=== PATIENT | male | born 1950 | race Two or more races ===

== ENCOUNTER 2018-06-25 07:43 | Emergency (ER) | payer MEDICARE ==
[~2018-06-25 07:43] MED LIST: ALL300 PO; ALLO-2 PO; ATOR20TA65 PO; DAPA10TA PO; EZET10TA41 PO; LISI20TA29 PO; METF-411 PO; OXYC-865 PO; PRED20TA6 PO
[2018-06-25 07:47] VITALS: BP 174/111
[2018-06-25] MEDS ORDERED: DAPA5TAB PO (07:50)
[2018-06-25] MEDS ORDERED: EZET10TA41 PO (07:50)
[2018-06-25] MEDS ORDERED: KETOROLAC 60 MG/2 ML VIAL IM ONE (07:55)
[2018-06-25] MEDS ORDERED: GABA-549 PO (07:57)
[2018-06-25] MEDS ORDERED: CYCL10TA29 PO (07:57)
--- NOTE | 2018-06-25 07:58 | ER Report ---
History and Physical Time Seen By MD: 07:54 Hx. of Stated Complaint: PAIN IN LOWER BACK RADIATING DOWN RIGHT LEG SINCE SATURDAY. HPI/ROS CHIEF COMPLAINT: Low back pain sciatica HISTORY OF PRESENT ILLNESS: Patient is a 59 [place] comes emergency Department complaint of low back pain and right-sided sciatic pain he has had this in the past patient has a known history of severe significant degenerative disc disease L3-L4 and L4 and L5 this been confirmed on x-ray he has been followed by primary care comes in today because the last couple days he's been noticing some worsening some stiffness in his leg tried career representative which she says made it worse went to a physical therapist who she says is making better as physical therapy scheduled to the next 3 days. Patient denies any urinary bladder bowel incontinence and numbness of subtle paresthesias no additional neuropathic type processes able to urinate without any issue. On arrival to the emergency department today other than his low back he has no other complaints at this time pain is sharp and stabbing localized to the lumbar area with some radiation into the gluteal area and down the right leg stopping at the knee which is consistent with his prior sciatic REVIEW OF SYSTEMS: Respiratory: No cough, no dyspnea. Cardiovascular: No chest pain, no palpitations. Gastrointestinal: No vomiting, no abdominal pain. Musculoskeletal: Low back pain Remainder of the 14 system rev: Yes Allergies: Coded Allergies: No Known Drug Allergies (Unverified , 06/25/18) Home Meds Reported Medications Dapagliflozin Propanediol (Farxiga) 5 Mg Tablet, 1 TAB PO DAILY 06/25/18 Ezetimibe (ZETIA) 10 Mg Tablet, 10 MG PO QDAY, TAB 06/25/18 Lisinopril (LISINOPRIL) 20 Mg Tablet, 20 MG PO QDAY, TAB 07/06/17 Metformin Hcl (METFORMIN HCL) 500 Mg Tablet, 1 TAB PO DAILY, #180 06/16/16 Discontinued Reported Medications Atorvastatin Calcium (ATORVASTATIN CALCIUM) 20 Mg Tablet, 1 TAB PO DAILY, #90 06/16/16 Discontinued Scripts Prednisone (PREDNISONE) 20 Mg Tablet, 20 MG PO QDAY for 5 Days, #5 TAB 0 Refills Prov:FRANCIS FLOYD MD 07/06/17 Oxycodone Hcl/Acetaminophen (PERCOCET 5-325 MG TABLET) 1 Each Tablet, 1-2 EACH PO Q6H for PAIN, #20 TAB 0 Refills Prov:FRANCIS FLOYD MD 07/06/17 Reviewed Nurses Notes: Yes Old Medical Records Reviewed: Yes Hx Smoking: No Smoking Status: Never Smoker Exposure to Second Hand Smoke?: No Hx Substance Use Disorder: No Hx Alcohol Use: No Constitutional Vital Sign - Last 24 Hours 06/25/18 07:47 Temp 97.5 Pulse 72 Resp 16 B/P (MAP) 174/111 Pulse Ox 91 O2 Delivery Room Air Physical Exam General Appearance: The patient is alert, has no immediate need for airway protection and no current signs of toxicity. [ ] Eyes: Pupils equal and round no injection. Respiratory: Chest is non tender, lungs are clear to auscultation. Cardiac: regular rate and rhythm [ ] Gastrointestinal: Abdomen is soft and non tender, no masses, bowel sounds normal. Musculoskeletal: Low back examination negative Romberg patient able to ambulate with a slight limp able to lift both knees with contralateral discomfort consistent with low back sciatica type pain no numbness or saddle paresthesias noted otherwise negative back examination Neck is supple and non tender. Extremities have full range of motion and are non tender. Skin: No rashes or lesions. [ ] DIFFERENTIAL DIAGNOSIS: After history and physical exam differential diagnosis was considered for degenerative disc disease with sciatica Medical Decision Making ED Course/Re-evaluation ED Course ED clinical course medical decision making 67-year-old male with severe degenerative disc disease arty confirmed on x-ray low back with sciatica no neuropathic disease process no numbness or saddle paresthesias no urinary bladder bowel incontinence no indications for further imaging gave him an IM Toradol shot for pain discomfort and inflammation we'll start him on gabapentin and a muscle relaxer he is arty scheduled for therapy tomorrow and the following day who also referred to neurosurgery for outpatient evaluation for possible surgical intervention Decision to Disposition Date: Jun 25, 2018 Decision to Disposition Time: 07:56 Depart Departure Latest Vital Signs Vital Signs Date Time Temp Pulse Resp B/P (MAP) Pulse Ox O2 Delivery O2 Flow Rate FiO2 06/25/18 07:47 97.5 72 16 174/111 91 Room Air Impression: Primary Impression: Sciatica Condition: Improved Disposition: HOME OR SELF-CARE Referrals: KIP MALIK DO (PCP) TORRES GARCÍA MD 5 Days New Scripts Cyclobenzaprine Hcl (CYCLOBENZAPRINE HCL) 10 Mg Tablet 10 MG PO TID, #9 TAB Prov: RM ROSADO MD 06/25/18 Gabapentin (GABAPENTIN) 300 Mg Capsule 300 MG PO TID for 10 Days, #30 CAPSULE Prov: RM ROSADO MD 06/25/18 Patient Instructions: Sciatica (DC) RM ROSADO MD Jun 25, 2018 07:58
== END 2018-06-25 08:05 | disposition home or self-care (01) ==
LOC: ER 07:47
DX: M54.41 Lumbago with sciatica, right side (principal)
CPT/HCPCS: 96372; 99283; J1885

== ENCOUNTER 2018-07-17 00:50 | Outpatient (RCR) | payer MEDICARE ==
[~2018-07-17 00:50] MED LIST changes: +CYCL10TA29 PO; +DAPA5TAB PO; +GABA-549 PO; -METF-411 PO; +METF-450 PO
[2018-07-17] MEDS ORDERED: IOPAMIDOL 76% 75 ML INFUS BTL 75 ML ONE (07:42)
--- NOTE | 2018-07-17 10:10 | RADIOLOGY IMAGING REPORT ---
FACILITY: [facility] PATIENT NAME: Marcel Tao : 1950 MR: [id number] V: [id number] EXAM DATE: ORDERING PHYSICIAN: KIP MALIK TECHNOLOGIST: Location: [facility] [place] Patient: Marcel Tao : 1950 Visit/Account:[id number] Date of Sevice: 07/17/2018 ABDOMEN/PELVIS WITH CONTRAST HISTORY: Hernia, abdomen pain TECHNIQUE: Following administration of IV contrast contiguous axial images acquired through the abdom en/pelvis. Coronal and sagittal reformatting also performed. Dose Lowering Technique One of the following dose optimization techniques was utilized in the performance of this exam: Autom ated exposure control; adjustment of the mA and/or kV according to the patient's size; or use of an i terative reconstruction technique. Specific details can be referenced in the facility's radiology C T exam operational policy. CONTRAST: 75 mL Isovue-370 COMPARISON: CT abdomen and pelvis February 09, 2014 FINDINGS: Visualized lung bases: Coronary artery calcifications Hepatobiliary: There is mild diffuse hepatic steatosis. There is a 4.5 mm calculus in the gallbladd er neck. No evidence of biliary ductal dilatation Spleen: Negative. Adrenals: Negative. Pancreas: Negative. Kidneys ureters or bladder: Kidneys appear grossly unremarkable other than mild perinephric stranding bilaterally. There is mild bladder wall thickening. Genitalia: Negative. GI: There is diverticulosis of colon although no CT evidence of acute diverticulitis. The appendix is visualized and does not appear inflamed Vessels/spaces/nodes: Very mild vascular calcifications Bones/soft tissues: There are spondylotic changes of the lumbar spine . Small umbilical hernia con taining Additional findings: None pertinent. IMPRESSION: Mild diffuse hepatic steatosis Cholelithiasis although no evidence for ductal dilatation Mild bladder wall thickening Colonic diverticulosis although no CT evidence of acute diverticulitis Report Dictated By: Sridevi Humphrey MD at 07/17/2018 9:03 AM Report E-Signed By: Sridevi Humphrey MD at 07/17/2018 10:06 AM WSN:[id number]
--- NOTE | 2018-07-18 07:40 | RADIOLOGY IMAGING REPORT ---
FACILITY: [facility] PATIENT NAME: Marcel Tao : 1950 MR: [id number] V: [id number] EXAM DATE: ORDERING PHYSICIAN: KIP MALIK TECHNOLOGIST: Location: [facility] [place] Patient: Marcel Tao : 1950 Visit/Account:[id number] Date of Sevice: 07/18/2018 Single view of the orbits INDICATION: Pre-MRI. Evaluate for radiopaque foreign body. FINDINGS: Single Garcia' view was obtained of the skull. No evidence of radiopaque foreign body over lying the bilateral orbits. The visualized paranasal sinuses appear patent. No acute osseous abnorm ality identified. IMPRESSION: No evidence of radiopaque foreign body overlying the orbits. Report Dictated By: James Arreguin MD at 07/18/2018 7:36 AM Report E-Signed By: James Arreguin MD at 07/18/2018 7:37 AM WSN:[id number]
--- NOTE | 2018-07-18 08:59 | RADIOLOGY IMAGING REPORT ---
FACILITY: [facility] [place] PATIENT NAME: Marcel Tao : 1950 MR: [id number] V: [id number] EXAM DATE: [id number] ORDERING PHYSICIAN: KIP MALIK TECHNOLOGIST: Location: [facility] Patient: Marcel Tao : 1950 Visit/Account:[id number] Date of Sevice: 07/18/2018 EXAMINATION: MRI Lumbar spine without intravenous contrast HISTORY: Low back pain. Right leg pain. COMPARISON: CT abdomen and pelvis dated 07/17/2018. TECHNIQUE: Multi-planar, multi-sequence lumbar spine MRI was performed without intravenous contrast administration. FINDINGS: Alignment: Normal. Vertebral marrow signal: Schmorl's nodes in the inferior L3 endplate. Mild discogenic fatty marrow ch anges in the lower lumbar spine. Distal thoracic cord: Negative. Conus: negative, terminates at T12-L1 Cauda equina: Negative. Paravertebral soft tissues: Negative. Visualized abdominal and pelvic structures: Negative. Disc Spaces: Lower thoracic spine: Mild degenerative changes without stenosis. L1-2: Circumferential disc bulge and facet hypertrophy. No significant spinal canal stenosis. Mild bi lateral neural foraminal stenosis. L2-3: Circumferential disc bulge and facet hypertrophy. No significant spinal canal stenosis. Mild bi lateral neural foraminal stenosis. L3-4: Mild to moderate disc height loss with circumferential disc bulge and superimposed right centra l/foraminal disc extrusion with 13 mm of superior migration. Bilateral facet hypertrophy. Right later al recess stenosis with medial displacement of the adjacent nerve roots. Mild spinal canal and left l ateral recess stenosis. Moderate left and severe right neural foraminal stenosis. L4-5: Moderate to severe disc height loss with circumferential disc osteophyte complex and facet hype rtrophy. Mild spinal canal stenosis. Moderate bilateral neural foraminal stenosis. L5-S1: Moderate to severe disc height loss with circumferential disc osteophyte complex, eccentric to the left. Left greater than right facet hypertrophy. Mild right and moderate left lateral recess quin nosis. Mild to moderate right and severe left neural foraminal stenosis. IMPRESSION: Multilevel degenerative disc disease and facet hypertrophy. Report Dictated By: Reilly Herrera MD at 07/18/2018 8:47 AM Report E-Signed By: Reilly Herrera MD at 07/18/2018 8:54 AM WSN:[email or web address]
== END 2018-07-18 18:00 | disposition home or self-care (01) ==
LOC: CT 00:50 → EDSTATUS 15:10 → CT 07-18 18:00
PROVIDERS: ATTEND Family Medicine
DX: K43.9 Ventral hernia without obstruction or gangrene (principal); K46.9 Unspecified abdominal hernia without obstruction or gangrene; R10.9 Unspecified abdominal pain; E11.65 Type 2 diabetes mellitus with hyperglycemia; K57.30 Diverticulosis of large intestine without perforation or abscess without bleeding; K76.0 Fatty (change of) liver, not elsewhere classified; K80.20 Calculus of gallbladder without cholecystitis without obstruction
CPT/HCPCS: 70030; 72148; 74177; Q9967

== ENCOUNTER → 2018-12-31 | Outpatient (CLI) | payer MEDICARE ==
--- NOTE | 2018-12-31 12:16 | RADIOLOGY IMAGING REPORT ---
FACILITY: [facility] [place] PATIENT NAME: Marcel Tao : 1950 MR: [id number] V: [id number] EXAM DATE: ORDERING PHYSICIAN: KIP MALIK TECHNOLOGIST: Location: [facility] [place] Patient: Marcel Tao : 1950 Visit/Account:[id number] Date of Sevice: 12/31/2018 Right knee Indication: Fall in October, swelling and pain Comparison: None available Findings: 3 views right knee were obtained. Linear calcifications project over the medial and lateral joint space. Minimal spurring is seen in t he medial compartment. Lateral view demonstrates prepatellar soft tissue swelling. Mild spurring is seen along the articular surface the patella. No significant effusion. IMPRESSION: 1. Chondrocalcinosis with mild multicompartmental degenerative change. 2. Prepatellar soft tissue swelling without acute bony finding Report Dictated By: Stevie Sánchez MD at 12/31/2018 12:08 PM Report E-Signed By: Stevie Sánchez MD at 12/31/2018 12:10 PM WSN:[id number]
== END ==
LOC: RAD 11:08
PROVIDERS: ATTEND Family Medicine
DX: M11.261 Other chondrocalcinosis, right knee (principal); M25.461 Effusion, right knee